=== PATIENT | female | born 1955 | race Caucasian/White ===

== ENCOUNTER 2024-06-30 17:43 | Emergency (ER) | payer MEDICARE ==
[2024-06-30] MEDS ORDERED: Bacitracin 1 PK ONE (22:00)
== END 2024-06-30 22:00 | disposition home or self-care (01) ==
LOC: ERS 17:43
DX: M25.532 Pain in left wrist (principal); W01.0XXA Fall on same level from slipping, tripping and stumbling without subsequent striking against object, initial encounter
CPT/HCPCS: 99283